=== PATIENT | female | born 1950 | race Caucasian/White ===

== ENCOUNTER 2017-06-28 11:50 | Emergency (ER) | payer OTHER ==
[2017-06-28 12:04] VITALS: RESP 18
--- NOTE | 2017-06-28 12:16 | EDPHY ---
H & P Stated Complaint: Sent to ED from PCPs office for eval abd pain;US this morning (see report) Time Seen by Provider: 06/28/17 12:16 HPI/ROS: CHIEF COMPLAINT: Abdominal pain HISTORY OF PRESENT ILLNESS: The patient presents to the ED for evaluation of a 3 day history of worsening left-sided abdominal pain. The patient reports nausea without vomiting or diarrhea. She denies any hematemesis or melena. The patient recently establish primary care. She is noted to be diabetic and is not currently taking medications. The patient reports a past surgical history significant for hysterectomy. She denies any dysuria or fever. The patient had a outpatient right upper quadrant ultrasound performed earlier today which demonstrated cholelithiasis without cholecystitis. She was referred to the ED for further evaluation of her pain. The patient complains primarily of moderate left upper quadrant pain. She does report some pain in her back. The patient denies any dysuria or additional acute complaints. REVIEW OF SYSTEMS: A comprehensive 10 point review of systems is otherwise negative aside from elements mentioned in the history of present illness. Source: Patient Exam Limitations: No limitations - Personal History Current Tetanus Diphtheria and Acellular Pertussis (TDAP): Yes - Medical/Surgical History Hx Diabetes: Yes Other PMH: just dx w/ elevated BS (?new diab) - Social History Smoking Status: Former smoker - Physical Exam Exam: General Appearance: Alert, no distress, obese female Eyes: Pupils equal and round no pallor or injection ENT, Mouth: Mucous membranes moist Respiratory: There are no retractions, lungs are clear to auscultation Cardiovascular: Regular rate and rhythm Gastrointestinal: Tenderness to palpation in left upper quadrant, normal bowel sounds, no peritoneal signs Back: No CVA tenderness Neurological: 5/5 strength noted all 4 extremities Skin: Warm and dry, no rashes Musculoskeletal: Neck is supple nontender Extremities: symmetrical, full range of motion Constitutional: Initial Vital Signs Temperature (C) 36.7 C 06/28/17 12:01 Heart Rate 88 06/28/17 12:01 Respiratory Rate 18 06/28/17 12:01 Blood Pressure 177/122 H 06/28/17 12:01 O2 Sat (%) 95 06/28/17 12:01 O2 Delivery Mode Room Air Allergies/Adverse Reactions: Penicillins Allergy (Unknown, Verified 06/28/17 12:01) as child Home Medications: Medication Instructions Recorded NK [No Known Home Meds] 06/28/17 Medical Decision Making - Diagnostics Imaging Results: Imaging Impressions Abdomen CT 06/28/17 13:08 Impression: Cholelithiasis. No other findings for acute intra-abdominal or pelvic abnormality. Degenerative change as above. Results called and discussed with Dr. Tex Velasco on 06/28/2017, 14:08. ED Course/Re-evaluation: The patient presents to the ED for evaluation of an acute exacerbation of chronic abdominal pain. The patient was recently diagnosed with diabetes. She denies any nausea, vomiting or diarrhea. The patient has had laboratory studies which demonstrate hyperglycemia. She had a right upper quadrant ultrasound which demonstrated cholelithiasis without cholecystitis. As I examined the patient she clearly endorses left-sided abdominal pain. She has minimal tenderness on exam. The patient's laboratory studies continued to demonstrate no significant leukocytosis. Given her complaints of left-sided pain and mild tenderness a CT scan of the abdomen pelvis was ordered which demonstrates no evidence of perforation, obstruction or diverticulitis. The patient was re-evaluated several times in the emergency department and is well-appearing. I do feel that she can begin taking ranitidine for possible gastroesophageal reflux. She is advised to follow up with her primary care provider next week as scheduled for further evaluation and management of her hyperglycemia. If the patient continues to have ongoing chronic abdominal pain I will defer to the patient's primary care provider for consideration of a referral to Gastroenterology. Differential Diagnosis: Differential diagnosis considered includes pancreatitis, obstruction, perforation, metabolic abnormality, diverticulitis - Data Points Laboratory Results: Laboratory Results 06/28/17 12:25 06/28/17 12:25 06/28/17 06/28/17 06/28/17 12:25 12:25 12:25 WBC 8.78 10^3/uL 10^3/uL (3.80-9.50) RBC 4.70 10^6/uL 10^6/uL (4.18-5.33) Hgb 14.6 g/dL g/dL (12.6-16.3) Hct 40.4 % % (38.0-47.0) MCV 86.0 fL fL (81.5-99.8) MCH 31.1 pg pg (27.9-34.1) MCHC 36.1 g/dL g/dL (32.4-36.7) RDW 12.8 % % (11.5-15.2) Plt Count 332 10^3/uL 10^3/uL (150-400) MPV 9.5 fL fL (8.7-11.7) Neut % (Auto) 61.0 % % (39.3-74.2) Lymph % (Auto) 28.5 % % (15.0-45.0) [place] % (Auto) 6.7 % % (4.5-13.0) Eos % (Auto) 2.5 % % (0.6-7.6) Baso % (Auto) 1.0 % % (0.3-1.7) Nucleat RBC Rel Count 0.0 % % (0.0-0.2) Absolute Neuts (auto) 5.35 10^3/uL 10^3/uL (1.70-6.50) Absolute Lymphs (auto) 2.50 10^3/uL 10^3/uL (1.00-3.00) Absolute Monos (auto) 0.59 10^3/uL 10^3/uL (0.30-0.80) Absolute Eos (auto) 0.22 10^3/uL 10^3/uL (0.03-0.40) Absolute Basos (auto) 0.09 10^3/uL 10^3/uL (0.02-0.10) Absolute Nucleated RBC 0.00 10^3/uL 10^3/uL (0-0.01) Immature Gran % 0.3 % % (0.0-1.1) Immature Gran # 0.03 10^3/uL 10^3/uL (0.00-0.10) Sodium 141 mEq/L mEq/L (134-144) Potassium 3.7 mEq/L mEq/L (3.5-5.2) Chloride 103 mEq/L mEq/L (97-110) Carbon Dioxide 22 mEq/l mEq/l (22-31) Anion Gap 16 mEq/L mEq/L (8-16) BUN 9 mg/dL mg/dL (7-23) Creatinine 0.7 mg/dL mg/dL (0.6-1.0) Estimated GFR > 60 Glucose 181 mg/dL H mg/dL (70-100) Calcium 9.9 mg/dL mg/dL (8.5-10.4) Total Bilirubin 0.8 mg/dL mg/dL (0.1-1.4) Conjugated Bilirubin 0.4 mg/dL mg/dL (0.0-0.5) Unconjugated Bilirubin 0.4 mg/dL mg/dL (0.0-1.1) AST 146 IU/L H IU/L (14-46) ALT 134 IU/L H IU/L (9-52) Alkaline Phosphatase 98 IU/L IU/L (38-126) Total Protein 7.1 g/dL g/dL (6.3-8.2) Albumin 4.3 g/dL g/dL (3.5-5.0) Lipase 102 IU/L IU/L (23-300) Medications Given: Discontinued Medications Sodium Chloride (Ns) 1,000 mls @ 0 mls/hr IV EDNOW ONE; Wide Open PRN Reason: Protocol Stop: 06/28/17 13:07 Last Admin: 06/28/17 14:07 Dose: 1,000 mls Departure - Departure Disposition: Home, Routine, Self-Care Clinical Impression: Abdominal pain Condition: Good Instructions: Acute Abdominal Pain (ED) Additional Instructions: Sometimes we are unable to diagnose an obvious cause of abdominal pain in the Emergency Department. Based upon our evaluation today, we see no obvious explanation for your pain. Because more serious conditions can be difficult to diagnose early in the course of their presentation, we ask that you return to the Emergency Department in 8-12 hours for a recheck if you are still having pain. This is necessary to exclude the development of a more serious condition such as appendicitis or other intra-abdominal emergency. In the event your pain markedly increases before that time or you develop intractable vomiting or fever return to the Emergency Department immediately. I do recommend beginning ranitidine 150 mg twice daily to see if this improves your symptoms. If you continue to experience intermittent abdominal pain your primary care provider may refer you to Gastroenterology for further evaluation. Referrals: Monalisa García MD [Primary Care Provider] - As per Instructions
[2017-06-28] MEDS ORDERED: NS 1,000 ML IV ONE (13:06)
[2017-06-28 13:14] LABS: PLATELET COUNT 332 10^3/uL (150-400)
[2017-06-28] MEDS ORDERED: IOPAMIDOL (ISOVUE-300) 100 ML BTL ONE (13:36)
[2017-06-28 14:13] VITALS: BP 217/99; PULSE 90; TEMP 97.9; O2SAT 98
== END 2017-06-28 15:33 | disposition home or self-care (01) ==
DX: R10.12 Left upper quadrant pain (principal); E11.9 Type 2 diabetes mellitus without complications; E86.9 Volume depletion, unspecified; Z87.891 Personal history of nicotine dependence
CPT/HCPCS: 74177; 96360; 99285; Q9967

== ENCOUNTER → 2017-06-28 | Outpatient (CLI) | payer OTHER | LOC: BMCIMAGING 08:35 | PROVIDERS: ATTEND Internal Medicine | DX: K80.20 Calculus of gallbladder without cholecystitis without obstruction (principal); K76.0 Fatty (change of) liver, not elsewhere classified ==

== ENCOUNTER → 2017-07-08 | Outpatient (CLI) | payer OTHER | LOC: BMCIMAGING 09:18 | PROVIDERS: ATTEND Internal Medicine | DX: Z12.31 Encounter for screening mammogram for malignant neoplasm of breast (principal); Z13.820 Encounter for screening for osteoporosis; N63.20 Unspecified lump in the left breast, unspecified quadrant; M85.89 Other specified disorders of bone density and structure, multiple sites ==

== ENCOUNTER → 2017-07-12 | Outpatient (CLI) | payer OTHER | LOC: BMCIMAGING 10:03 | PROVIDERS: ATTEND Internal Medicine | DX: R92.8 Other abnormal and inconclusive findings on diagnostic imaging of breast (principal) ==

== ENCOUNTER → 2017-08-02 | Outpatient (CLI) | payer OTHER ==
[~2017-08-02] MED LIST: BUPIVACAINE 0.5% 30 ML SDV ONE; LIDOCAINE 1% 300 MG/30 ML SDV ONE
== END ==
LOC: FIMAGING 07:09
PROVIDERS: ATTEND Internal Medicine
PROC: 0HBU3ZX Excision of Left Breast, Percutaneous Approach, Diagnostic (ICD-10-PCS; principal; 2017-08-02)
DX: D24.2 Benign neoplasm of left breast (principal)

== ENCOUNTER → 2017-08-05 | Outpatient (CLI) | payer OTHER | LOC: FIMAGING 07:47 | PROVIDERS: ATTEND Nurse Practitioner Family | DX: K21.9 Gastro-esophageal reflux disease without esophagitis (principal) ==

== ENCOUNTER → 2017-08-14 | Outpatient (CLI) | payer OTHER | LOC: FIMAGING 08:30 | PROVIDERS: ATTEND Psychiatry & Neurology Neurology | DX: M51.36 Other intervertebral disc degeneration, lumbar region (principal); M53.86 Other specified dorsopathies, lumbar region ==

== ENCOUNTER → 2017-10-06 | Outpatient (CLI) | payer OTHER ==
[~2017-10-06] MED LIST changes: -BUPIVACAINE 0.5% 30 ML SDV ONE; +GADOBUTROL 10 ML VIAL IVP ONE; -LIDOCAINE 1% 300 MG/30 ML SDV ONE
== END ==
LOC: FIMAGING 07:57
PROVIDERS: ATTEND Internal Medicine
DX: G31.9 Degenerative disease of nervous system, unspecified (principal)
CPT/HCPCS: 70553; A9585

== ENCOUNTER → 2017-10-12 | Outpatient (CLI) | payer OTHER ==
[~2017-10-12] MED LIST changes: -GADOBUTROL 10 ML VIAL IVP ONE; +IOPAMIDOL (ISOVUE-300) 100 ML BTL ONE
== END ==
LOC: FIMAGING 13:29
PROVIDERS: ATTEND Internal Medicine
DX: R63.4 Abnormal weight loss (principal); R20.2 Paresthesia of skin; G62.9 Polyneuropathy, unspecified
CPT/HCPCS: 71260; Q9967

== ENCOUNTER → 2018-04-21 | Outpatient (CLI) | payer OTHER | LOC: BHFA 09:30 | PROVIDERS: ATTEND Internal Medicine Cardiovascular Disease | DX: Z01.818 Encounter for other preprocedural examination (principal); I25.2 Old myocardial infarction | CPT/HCPCS: 78452; 93017; A9500; J2785 ==

== ENCOUNTER → 2018-04-27 | Outpatient (CLI) | payer OTHER | LOC: BHFA 09:30 | PROVIDERS: ATTEND Internal Medicine Cardiovascular Disease | DX: E11.9 Type 2 diabetes mellitus without complications (principal); I10 Essential (primary) hypertension ==